=== PATIENT | female | born 1965 | race Caucasian/White ===

== ENCOUNTER 2018-01-12 13:47 | Emergency (ER) | payer OTHER ==
[2018-01-12] MEDS: HYDROCODONE/APAP (5/325) TAB PO (17:09)
== END 2018-01-12 18:20 | disposition home or self-care (01) ==
LOC: FTE 13:47
DX: R20.0 Anesthesia of skin (principal); I10 Essential (primary) hypertension; E11.9 Type 2 diabetes mellitus without complications
CPT/HCPCS: 70450; 99284-25